=== PATIENT | male | born 1965 | race Two or more races ===

== ENCOUNTER 2023-09-25 10:21 | Inpatient (IN) | payer BC ==
[~2023-09-25] VITALS: Ht 167.6 cm; Wt 77.1 kg
[2023-09-25] MEDS ORDERED: PANTOPRAZOLE 40 MG VIAL ONE (10:32)
[2023-09-25] MEDS ORDERED: ONDANSETRON HCL/PF 4 MG/2 ML VIAL ONE (10:32)
[2023-09-25] MEDS: ONDANSETRON HCL/PF 4 MG/2 ML VIAL IVP ONE (10:50)
[2023-09-25] MEDS: IV NS 0.9% 1,000 ML BAG IV ONE (10:50)
[2023-09-25] MEDS: PANTOPRAZOLE 40 MG VIAL IV ONE (10:50)
[2023-09-25 10:54] LABS: BASOPHILS % (AUTO) 0.3 % (0.0-2.0); EOSINOPHILS # (AUTO) 0.1 K/uL (0.0-0.7); EOSINOPHILS % (AUTO) 0.8 % (0.0-6.0); HEMATOCRIT 39 % (39-51); HEMOGLOBIN 12.8 g/dL (13.5-17.5); LYMPHOCYTES # (AUTO) 1.8 K/uL (0.8-4.8); LYMPHOCYTES % (AUTO) 25.3 % (20.0-44.0); MEAN CORPUSCULAR HEMOGLOBIN 29 PG (26.0-33.0); MEAN CORPUSCULAR HGB CONC 33 g/dl (31.0-36.0); MEAN CORPUSCULAR VOLUME 90 fL (80-96); MONOCYTES # (AUTO) 0.4 K/uL (0.1-1.30); MONOCYTES % (AUTO) 5.2 % (2.0-12.0); NEUTROPHILS # (AUTO) 4.7 K/uL (1.8-8.9); NEUTROPHILS % (AUTO) 68.4 % (43.0-81.0); PLATELET COUNT (AUTO) 204 K/uL (150-450); RED BLOOD CELL COUNT(AUTO) 4.37 MIL/uL (4.5-6.0); RED CELL DISTRIBUTION WIDTH 14.2 % (11.5-15.0); WHITE BLOOD COUNT (AUTO) 6.9 K/uL (4.3-11.0)
[2023-09-25 11:07] LABS: CALCIUM, SERUM 8.3 mg/dL (8.5-10.1); CARBON DIOXIDE 31 mmol/L (21-32); CHLORIDE 108 mmol/L (98-107); CREATININE 0.8 mg/dL (0.6-1.3); GLUCOSE 150 mg/dL (74-106); POTASSIUM 4.4 mmol/L (3.5-5.1); SODIUM SERUM 143 mmol/L (136-145); UREA NITROGEN, BLOOD 36 mg/dL (7-18)
[2023-09-25 11:08] LABS: INR 1.06 (0.91-1.10); PARTIAL THROMBOPLASTIN TIME 23.8 SEC (24.3-34.3); PROTHROMBIN TIME 11.2 SECS (9.2-11.1)
[2023-09-25 11:12] LABS: ALANINE AMINOTRANSFERASE 19 U/L (12-78); ALBUMIN 2.8 g/dL (3.4-5.0); ALKALINE PHOSPHATASE 48 U/L (46-116); ASPARTATE AMINOTRANSFERASE 7 U/L (15-37); BILIRUBIN,DIRECT 0.1 mg/dL (0.0-0.2); BILIRUBIN,TOTAL 0.6 mg/dL (0.2-1.0); LIPASE 31 U/L (16-77)
[2023-09-25] MEDS ORDERED: MAG HYDROX/AL HYDROX/SIMETH 30 ML UDC PO PRN (11:30)
[2023-09-25] MEDS ORDERED: Z GUARD REMEDY 4 OZ OINT TP PRN (11:30)
[2023-09-25] MEDS ORDERED: ZOLPIDEM TARTRATE 5 MG TABLET PO PRN (11:30)
[2023-09-25] MEDS ORDERED: MAGNESIUM HYDROXIDE 30 ML UDC PO PRN (11:30)
[2023-09-25] MEDS ORDERED: ACETAMINOPHEN 325 MG TABLET PO PRN (11:30)
[2023-09-25] MEDS ORDERED: ONDANSETRON HCL/PF 4 MG/2 ML VIAL IVP PRN (11:30)
[2023-09-25] MEDS ORDERED: CYAN-51 PO (12:32)
[2023-09-25] MEDS ORDERED: MULT-416 PO (12:32)
[2023-09-25] MEDS ORDERED: ZINC50TA69 PO (12:32)
[2023-09-25] MEDS ORDERED: MAGN100T PO (12:32)
[2023-09-25 12:50] VITALS: BP 130/71; TEMP 98.2; O2SAT 100
[2023-09-25 16:00] VITALS: BP 106/67; TEMP 98.2; O2SAT 99
[2023-09-25 18:45] LABS: HEMOGLOBIN 12.7 g/dL (13.5-17.5)
[2023-09-25 20:00] VITALS: BP 114/70; TEMP 98.6; O2SAT 99
[2023-09-25] MEDS: PANTOPRAZOLE 40 MG VIAL IV SCH (21:19)
[2023-09-26 04:00] VITALS: BP 117/71; TEMP 97.3; O2SAT 99
[2023-09-26 07:04] LABS: BASOPHILS % (AUTO) 0.4 % (0.0-2.0); EOSINOPHILS # (AUTO) 0.1 K/uL (0.0-0.7); EOSINOPHILS % (AUTO) 1.1 % (0.0-6.0); HEMATOCRIT 34 % (39-51); HEMOGLOBIN 11.7 g/dL (13.5-17.5); LYMPHOCYTES % (AUTO) 35.1 % (20.0-44.0); MEAN CORPUSCULAR HEMOGLOBIN 30 PG (26.0-33.0); MEAN CORPUSCULAR HGB CONC 34 g/dl (31.0-36.0); MEAN CORPUSCULAR VOLUME 89 fL (80-96); MONOCYTES # (AUTO) 0.4 K/uL (0.1-1.30); MONOCYTES % (AUTO) 7.1 % (2.0-12.0); NEUTROPHILS # (AUTO) 3.2 K/uL (1.8-8.9); NEUTROPHILS % (AUTO) 56.3 % (43.0-81.0); PLATELET COUNT (AUTO) 171 K/uL (150-450); RED BLOOD CELL COUNT(AUTO) 3.86 MIL/uL (4.5-6.0); RED CELL DISTRIBUTION WIDTH 14.3 % (11.5-15.0); WHITE BLOOD COUNT (AUTO) 5.7 K/uL (4.3-11.0)
[2023-09-26 07:24] LABS: ALBUMIN 2.7 g/dL (3.4-5.0); BILIRUBIN,TOTAL 0.8 mg/dL (0.2-1.0); CALCIUM, SERUM 8.2 mg/dL (8.5-10.1); CREATININE 0.8 mg/dL (0.6-1.3); MAGNESIUM 2.1 mg/dL (1.8-2.4); PHOSPHORUS 2.3 mg/dL (2.5-4.9); POTASSIUM 4.4 mmol/L (3.5-5.1); TOTAL PROTEIN, SERUM 5.4 g/dL (6.4-8.2)
[2023-09-26] MEDS: Sodium Phosphate 15 MMOL in IV NS 0.9% 245 ML IV ONE (15:23)
[2023-09-26 17:14] LABS: HEMOGLOBIN 11.6 g/dL (13.5-17.5)
[2023-09-26 20:00] VITALS: BP 111/58; TEMP 97.7; O2SAT 99
[2023-09-26] MEDS: IV NS 0.9% 1,000 ML IV PRN (23:32)
[2023-09-27 04:00] VITALS: BP 100/68; TEMP 97.9; O2SAT 97
[2023-09-27 07:07] LABS: CALCIUM, SERUM 7.7 mg/dL (8.5-10.1); CREATININE 0.9 mg/dL (0.6-1.3); POTASSIUM 4.2 mmol/L (3.5-5.1)
[2023-09-27] MEDS ORDERED: SUCR1TAB31 PO (10:29)
[2023-09-27] MEDS ORDERED: PANT40TA2 PO (10:29)
== END 2023-09-27 11:30 | disposition home or self-care (01) | DRG 378 ==
LOC: ER 10:24 → TELE1 11:09 → MEDSG1 15:24
PROVIDERS: ADMIT Nurse Practitioner Acute Care; ATTEND Internal Medicine
PROC: 0DB68ZX Excision of Stomach, Via Natural or Artificial Opening Endoscopic, Diagnostic (ICD-10-PCS; principal; 2023-09-26)
DX: K25.4 Chronic or unspecified gastric ulcer with hemorrhage (principal); D62 Acute posthemorrhagic anemia; E44.0 Moderate protein-calorie malnutrition; E88.09 Other disorders of plasma-protein metabolism, not elsewhere classified; K29.70 Gastritis, unspecified, without bleeding; Z68.27 Body mass index [BMI] 27.0-27.9, adult; Z87.11 Personal history of peptic ulcer disease
CPT/HCPCS: 36415; 71045-TC; 80048-TC; 80053-TC; 80076-TC; 83690-TC; 83735-TC; 84100-TC; 84484-TC; 85025-TC; 85027-TC; 85730-TC; 86850-TC; 88305-TC; 88313-TC; 88342; A6403; A9563; G0378; J2405; J2470; J2704; J7030; J7050